=== PATIENT | female | born 1995 | race Caucasian/White ===

== ENCOUNTER → 2018-12-07 | Outpatient (CLI) | payer BC ==
[~2018-12-07] VITALS: Ht 170.2 cm; Wt 67.1 kg
[~2018-12-07] MED LIST: GADOBUTROL 7.5 MMOL/7.5 ML (GADAVIST) VIAL IV ONE; IOHEXOL 240 MGI/ML 20 ML (OMNIPAQUE) VIAL IV ONE
--- NOTE | 2018-12-07 14:26 | Diagnostic Imaging Report ---
INDICATION: Right shoulder pain. TECHNIQUE: The patient was brought to the procedure room and placed on the table in a supine position. The skin of the right shoulder was prepped and draped in the usual sterile fashion. A small amount of 1% lidocaine was utilized for local anesthesia. A 22-gauge needle was advanced into the right shoulder at the rotator interval. 15 mL of a solution of iodinated contrast, normal saline, and gadolinium was injected under fluoroscopic observation. The needle was removed and hemostasis was obtained. 16 seconds of fluoroscopy was utilized. The patient tolerated the procedure well and was sent to MRI in satisfactory condition. IMPRESSION: Successful right shoulder injection of gadolinium contrast solution using fluoroscopy. Dictated by: Dictated on workstation # [id number]
--- NOTE | 2018-12-07 15:23 | Diagnostic Imaging Report ---
PROCEDURE: MRI upper extremity any joint with contrast right. TECHNIQUE: Multiplanar, multisequence contrast-enhanced MRI of the right upper extremity was accomplished. INDICATION: Right shoulder pain. No known injury. COMPARISON: None. FINDINGS: There is motion artifact on multiple sequences. No acute fracture is seen in the right shoulder. Alignment appears normal. There is contrast in the glenohumeral joint. There is marked contrast extending into the superior subscapularis recess and about the subscapularis musculature. The long head of the biceps tendon appears normal in course and signal. No high-grade partial-thickness or full-thickness rotator cuff tears are seen. There is irregularity of the superior labrum from 1 o'clock anteriorly to 11 o'clock posteriorly concerning for a labral tear. No labral cyst is seen. The acromion has a slightly curved undersurface without hooking. The coracoclavicular and coracoacromial ligaments appear intact. The soft tissues about the right shoulder are otherwise unremarkable. IMPRESSION: 1. Suboptimal examination due to motion artifact. 2. Irregularity of the superior glenoid labrum concerning for tear. No paralabral cyst is seen. 3. No high-grade partial-thickness or full-thickness rotator cuff tear is seen. Dictated by: Dictated on workstation # [id number]
== END ==
LOC: RAD 12:06
PROVIDERS: ATTEND Nurse Practitioner
DX: M25.511 Pain in right shoulder (principal)
CPT/HCPCS: 23350; 73040; 73222